=== PATIENT | male | born 1980 | race Two or more races ===

== ENCOUNTER → 2016-08-18 | Outpatient (CLI) | payer BC, OTHER ==
[~2016-08-18] MED LIST: ACETAMINOPHEN500 M6 PO; BROMPHENIR-PSE118 ML PO; METHYLPREDNISOLONE PO; SUDAFED PO
--- NOTE | ~2016-08-18 | EKG ---
PATIENT: SALVADOR GONZALEZ UNIT #: [id number] Ventricular Rate: 76 BPM Atrial Rate: 76 BPM P-R Interval: 130 ms QRS Duration: 86 ms Q-T Interval: 352 ms QTC Calculation(Bezet): 396 ms P [place]: 46 degrees Calculated R [place]: -18 degrees Calculated T [place]: 3 degrees Diagnosis Line: Normal sinus rhythm Diagnosis Line: Moderate voltage criteria for LVH, may be normal Diagnosis Line: variant Diagnosis Line: Otherwise normal ECG Diagnosis Line: No previous ECGs available Diagnosis Line: Confirmed by FERNANDO YOON MD ([id number]) on 08/19/2016 Diagnosis Line: 8:01:18 PM INTERPRETING MD: KARRIE BUTTERFIELD
[2016-08-18 12:11] LABS: CALCIUM SERUM 8.9 mg/dL (8.4-10.2); GLOM FILT RATE Estimated 97.8 mL/min (>60); POTASSIUM 4.4 mmol/L (3.5-5.1)
== END | disposition home or self-care (01) ==
LOC: CAMB 09:55
PROVIDERS: Orthopaedic Surgery
DX: Z01.818 Encounter for other preprocedural examination (principal); S83.242A Other tear of medial meniscus, current injury, left knee, initial encounter
CPT/HCPCS: 36415; 80048; 93005

== ENCOUNTER → 2016-08-26 | Day surgery (SDC) | payer BC, OTHER ==
--- NOTE | ~2016-08-26 | OR ---
Unit #: [id number] #: [id number] Patient: SALVADOR GONZALEZ [id number] [address] [id number] MR#: [id number] NAME: SALVADOR GONZALEZ ROOM: Date of Procedure: 08/26/2016 Admission Date: 08/26/2016 Surgeon: Mark Lockwood M.D. : 1980 Attending Physician: Mark Lockwood M.D. PROCEDURE OPERATIVE NOTE PREOPERATIVE DIAGNOSIS Right knee medial meniscus tear. POSTOPERATIVE DIAGNOSIS Right knee medial meniscus tear. PROCEDURE PERFORMED Partial arthroscopic medial meniscectomy. ANESTHESIA General. DESCRIPTION OF PROCEDURE After obtaining informed consent, he was taken to the operating room and placed in the supine position. After adequate induction of general anesthesia, he was prepped and draped in a sterile fashion. Standard anteromedial and anterolateral portals were made. The arthroscope was introduced into the knee. The suprapatellar pouch was normal. The undersurface of patella was intact. Trochlear groove was intact. There was some mild fibrillation in the central portion, which did not need a chondroplasty. Medial and lateral gutters were free of loose body. The medial joint was examined. There was a complex tear of the posterior horn of the medial meniscus, which was debrided using straight and left biting baskets to a stable rim. Final contouring was done with a shaver. The articular surfaces showed some minor fibrillation. The notch was examined. The ACL was intact. The lateral joint was examined. It was found to be intact. The portals were closed with 4-0 Vicryl sutures and infiltrated with 0.25% Marcaine with epinephrine. He was sent to recovery room stable. Dictated by... David Herrera/jevon TD: 08/26/2016 13:46 JOB #: [id number] Unit #: [id number] #: [id number] Patient: SALVADOR GONZALEZ PROCEDURE OPERATIVE NOTE Page 1 of 1 X Serafin Lockwood MD X PROCEDURE OPERATIVE NOTE
== END | disposition home or self-care (01) ==
LOC: CSUR 07:30
DX: M23.221 Derangement of posterior horn of medial meniscus due to old tear or injury, right knee (principal); M23.007 Cystic meniscus, unspecified meniscus, left knee; E66.9 Obesity, unspecified; G47.30 Sleep apnea, unspecified; D64.9 Anemia, unspecified; Z98.890 Other specified postprocedural states; Z68.41 Body mass index [BMI] 40.0-44.9, adult; Z79.899 Other long term (current) drug therapy
CPT/HCPCS: 82947; J2250; J2405; J3010